=== PATIENT | female | born 1980 | race Two or more races ===

== ENCOUNTER → 2018-05-09 | Outpatient (CLI) | payer OTHER ==
--- NOTE | 2018-05-09 10:39 | KCIC ---
Right upper quadrant abdominal ultrasound 05/09/2018 9:00 AM Clinical History: Upper abdominal pain, anemia Technique: Ultrasound examination of the abdomen was performed, and multiple static images were submitted for review. Comparison: Abdominal ultrasound November 13, 2014 Findings: Exam somewhat limited secondary to poor visualization due to patient body habitus. Pancreas is partially visualized. Visualized portions of the pancreas are unremarkable. Gallbladder appears be grossly unremarkable in appearance without evidence of focal thickening, stones, or sludge. Liver is mildly diffusely echogenic suggesting some degree of hepatic steatosis. No focal sonographic abnormalities involving the liver identified. The common bile duct is normal in diameter. The liver is top normal in size measuring 17 cm longitudinally. The right kidney is unremarkable in appearance measuring 13.2 cm in length. Previously seen right renal cyst is not visualized on today's exam which could be due to exam limitations versus resolution. Visualized IVC is grossly unremarkable. Impression: 1. Probable hepatic steatosis 2. No acute intra-abdominal abnormality is identified 3. Previously seen right renal cyst is not visualized on today's exam. This could be due to exam limitations versus resolution of the cyst. Electronically signed by: Bruno Khan MD (05/09/2018 10:35 AM) [id number]
== END | disposition home or self-care (01) ==
LOC: KCIC US 08:55
PROVIDERS: ATTEND Family Medicine
DX: R10.84 Generalized abdominal pain (principal); D64.9 Anemia, unspecified
CPT/HCPCS: 76705